=== PATIENT | male | born 1975 | race Two or more races ===

== ENCOUNTER 2025-03-05 15:04 | Outpatient (CLI) | payer OTHER ==
[~2025-03-05 15:04] MED LIST: SKELAXIN800 MG PO
== END 2025-03-05 15:09 | disposition home or self-care (01) ==
LOC: RAD 15:04
PROVIDERS: ATTEND Physical Medicine & Rehabilitation
DX: S92.355A Nondisplaced fracture of fifth metatarsal bone, left foot, initial encounter for closed fracture (principal); E55.9 Vitamin D deficiency, unspecified

== ENCOUNTER 2025-03-19 11:36 | Outpatient (CLI) | payer OTHER | END 2025-03-19 11:37 | disposition home or self-care (01) | LOC: NUCLEAR 11:36 | PROVIDERS: ATTEND Physical Medicine & Rehabilitation | DX: S92.355A Nondisplaced fracture of fifth metatarsal bone, left foot, initial encounter for closed fracture (principal); M81.0 Age-related osteoporosis without current pathological fracture ==